=== PATIENT | male | born 1935 | race Caucasian/White ===

== ENCOUNTER 2018-02-20 20:31 | Inpatient (IN) | payer MEDICARE, OTHER ==
[~2018-02-20] VITALS: Ht 182.9 cm; Wt 80.9 kg
[2018-02-20] MEDS ORDERED: DIPHTH/TETANUS/ACEL PERTUSSIS (BOOSTER) 0.5 ML VIAL/PFS IM ONE (20:37)
[2018-02-20] MEDS ORDERED: ceFAZolin 2 GM PREMIX 50 ML ONE (20:37)
[2018-02-20 20:50] LABS: AUTOMATED NEUTROPHIL # 4.2 TH/MM3 (1.8-7.7); BASOPHIL # 0.1 TH/MM3 (0-0.2); BASOPHIL % 0.9 % (0.0-2.0); EOSINOPHIL # 0.1 TH/MM3 (0-0.4); EOSINOPHIL % 1.9 % (0.0-4.0); HEMATOCRIT 41.4 % (39.0-51.0); HEMOGLOBIN 14.1 GM/DL (13.0-17.0); LYMPH % 18.4 % (9.0-44.0); LYMPHOCYTE # 1.1 TH/MM3 (1.0-4.8); MEAN CELL VOLUME 97.3 FL (80.0-100.0); MEAN CORPUSCULAR HEMOGLOBIN 33.2 PG (27.0-34.0); MEAN CORPUSCULAR HGB CONC 34.1 % (32.0-36.0); MEAN PLATELET VOLUME 7.5 FL (7.0-11.0); MONO % 7.8 % (0.0-8.0); MONOCYTE # 0.5 TH/MM3 (0-0.9); PLATELET COUNT 170 TH/MM3 (150-450); RED BLOOD COUNT 4.26 MIL/MM3 (4.50-5.90); RED CELL DISTRIBUTION WIDTH 14.3 % (11.6-17.2); WHITE BLOOD COUNT 5.9 TH/MM3 (4.0-11.0)
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
[2018-02-20 21:02] LABS: PROTHROMBIN TIME - PATIENT 10.4 SEC (9.8-11.6)
[2018-02-20] MEDS ORDERED: IOHEXOL 350 MG/ML 10 ML VIAL (for RAD DIAG) IVCONTRAST ONE (21:08)
[2018-02-20 21:12] VITALS: BP 134/76; PULSE 83; RESP 22; O2SAT 96
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
[2018-02-20 21:30] VITALS: BP 159/77; PULSE 84; RESP 20; O2SAT 99
[2018-02-20] MEDS ORDERED: ONDANSETRON HCL 4 MG/2 ML VIAL ONE (21:30)
[2018-02-20] MEDS ORDERED: MORPHINE SULFATE 4 MG/ML INJ ONE (21:31)
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
[2018-02-20] MEDS ORDERED: ONDANSETRON HCL 4 MG/2 ML VIAL IV PUSH ONE (21:45)
[2018-02-20] MEDS ORDERED: NURSING INFORMATION XX SCH (21:45)
[2018-02-20] MEDS ORDERED: CHLORHEXIDINE GLUCONATE 2 % 1 PACK (2 CLOTHS) TOP PRN (21:45)
[2018-02-20] MEDS ORDERED: MORPHINE SULFATE 2 MG/ML SYRINGE IV PUSH ONE (21:45)
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
[2018-02-20 22:00] VITALS: BP 153/77; PULSE 86; RESP 20; O2SAT 99
[2018-02-20 22:30] VITALS: BP 161/76; PULSE 88; RESP 19; O2SAT 99
[2018-02-20 23:00] VITALS: BP 147/73; PULSE 90; RESP 19; O2SAT 99
[2018-02-20 23:30] VITALS: BP 156/74; PULSE 94; RESP 16; O2SAT 99
[2018-02-20] MEDS: LACTATED RINGER'S 1000 ML INJ 1,000 ML IV SCH (23:39)
[2018-02-20] MEDS: ACETAMINOPHEN 1000 MG/100 ML 100 ML IV SCH (23:48)
[2018-02-20] MEDS: MORPHINE SULFATE 2 MG/ML SYRINGE IV PRN (23:54)
[2018-02-21] VITALS (16 sets, daily range): BP systolic 119–146; BP diastolic 57–73; PULSE 78–94; RESP 14–17; TEMP 98.7–99; O2SAT 95–99
[2018-02-21] MEDS: CHLORHEXIDINE GLUCONATE 2 % 1 PACK (2 CLOTHS) TOP SCH ×2 (04:00→21:59)
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
[2018-02-21] MEDS: MORPHINE SULFATE 2 MG/ML SYRINGE IV PRN (05:02)
[2018-02-21] MEDS: ACETAMINOPHEN 1000 MG/100 ML 100 ML IV SCH ×3 (06:16→14:29)
[2018-02-21] MEDS ORDERED: LACTULOSE SYRUP 20 GM/30 ML CUP PO PRN (06:30)
[2018-02-21] MEDS: RESP: ALBUTEROL 2.5 MG/IPRATROPIUM 0.5 MG NEB (SCH) NEB ×4 (06:48→21:16)
[2018-02-21] MEDS: METHOCARBAMOL 500 MG TAB PO SCH ×3 (08:02→21:59)
[2018-02-21] MEDS: POLYETHYLENE GLYCOL 17 GM PKG PO SCH (08:07)
[2018-02-21] MEDS ORDERED: AZAT50 PO (08:58)
[2018-02-21] MEDS ORDERED: PRIM250T (09:05)
[2018-02-21] MEDS ORDERED: LEVO25TA4 PO (09:05)
[2018-02-21] MEDS ORDERED: ALFU10TA2 PO (09:05)
[2018-02-21] MEDS ORDERED: CARB25TA9 PO (09:05)
[2018-02-21] MEDS ORDERED: DONE10TA7 PO (09:05)
[2018-02-21] MEDS ORDERED: ATOR20TA15 PO (09:05)
[2018-02-21] MEDS: GABAPENTIN 300 MG CAP PO SCH ×3 (09:21→18:51)
[2018-02-21] MEDS: FAMOTIDINE 20 MG TAB PO SCH ×2 (09:21→20:22)
[2018-02-21] MEDS: DOCUSATE SODIUM 50 MG/SENNA 8.6 MG TAB PO SCH ×2 (09:22→20:22)
[2018-02-21] MEDS: LIDOCAINE HCL 5% PATCH T-DERMAL SCH (10:03)
[2018-02-21] MEDS: PRIMIDONE 250 MG TAB PO SCH ×2 (13:15→20:21)
[2018-02-21] MEDS: TAMSULOSIN HCL 0.4 MG CAP PO SCH (13:17)
[2018-02-21] MEDS: azaTHIOprine 50 MG TAB PO SCH ×2 (13:17→20:21)
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
[2018-02-21] MEDS: CARBIDOPA/LEVODOPA 25 MG/100 MG TAB PO SCH ×2 (14:28→21:59)
[2018-02-21] MEDS ORDERED: ENALAPRILAT 1.25 MG/ML VIAL IV PUSH PRN (16:15)
--- NOTE | 2018-02-21 16:46 | EKG ---
Date Performed: 02/21/2018 Time Performed: 07:41:29 PTAGE: 89 years EKG: Sinus rhythm NONSPECIFIC T-WAVE ABNORMALITY BORDERLINE ECG NO PREVIOUS TRACING DOCTOR: Aron Sanchez Interpretating Date/Time 02/21/2018 16:47:02
[2018-02-21] MEDS: DONEPEZIL HCL 5 MG TAB PO SCH (20:21)
[2018-02-21] MEDS: ATORVASTATIN 20 MG TAB PO SCH (20:22)
[2018-02-21] MEDS: LACTATED RINGER'S 1000 ML INJ 1,000 ML IV SCH (20:29)
[2018-02-22] VITALS (8 sets, daily range): BP systolic 125–143; BP diastolic 59–66; PULSE 80–99; RESP 15–18; TEMP 97.2–99.3; O2SAT 93–98
[2018-02-22 04:25] LABS: AUTOMATED NEUTROPHIL # 2.8 TH/MM3 (1.8-7.7); BASOPHIL % 0.5 % (0.0-2.0); EOSINOPHIL # 0.1 TH/MM3 (0-0.4); EOSINOPHIL % 1.9 % (0.0-4.0); HEMATOCRIT 35.7 % (39.0-51.0); HEMOGLOBIN 12.1 GM/DL (13.0-17.0); LYMPH % 7.7 % (9.0-44.0); LYMPHOCYTE # 0.3 TH/MM3 (1.0-4.8); MEAN CELL VOLUME 97.4 FL (80.0-100.0); MEAN CORPUSCULAR HGB CONC 33.9 % (32.0-36.0); MEAN PLATELET VOLUME 7.3 FL (7.0-11.0); MONO % 10.7 % (0.0-8.0); MONOCYTE # 0.4 TH/MM3 (0-0.9); NEUT % 79.2 % (16.0-70.0); PLATELET COUNT 113 TH/MM3 (150-450); RED BLOOD COUNT 3.66 MIL/MM3 (4.50-5.90); RED CELL DISTRIBUTION WIDTH 14.5 % (11.6-17.2); WHITE BLOOD COUNT 3.6 TH/MM3 (4.0-11.0)
[2018-02-22 04:39] LABS: BICARBONATE 25.8 MEQ/L (21.0-32.0); CALCIUM 7.9 MG/DL (8.5-10.1); CREATININE 0.63 MG/DL (0.60-1.30)
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
[2018-02-22] MEDS: METHOCARBAMOL 500 MG TAB PO SCH ×3 (06:12→21:26)
[2018-02-22] MEDS: CARBIDOPA/LEVODOPA 25 MG/100 MG TAB PO SCH ×3 (06:12→21:27)
[2018-02-22] MEDS: LEVOTHYROXINE SODIUM 25 MCG TAB PO SCH (06:14)
[2018-02-22] MEDS: RESP: ALBUTEROL 2.5 MG/IPRATROPIUM 0.5 MG NEB (SCH) NEB ×4 (08:34→21:32)
[2018-02-22] MEDS: GABAPENTIN 300 MG CAP PO SCH ×3 (08:55→18:11)
[2018-02-22] MEDS: FAMOTIDINE 20 MG TAB PO SCH ×2 (08:55→21:26)
[2018-02-22] MEDS: TAMSULOSIN HCL 0.4 MG CAP PO SCH (08:55)
[2018-02-22] MEDS: PRIMIDONE 250 MG TAB PO SCH ×2 (08:56→21:26)
[2018-02-22] MEDS: DOCUSATE SODIUM 50 MG/SENNA 8.6 MG TAB PO SCH ×2 (08:56→21:25)
[2018-02-22] MEDS: LIDOCAINE HCL 5% PATCH T-DERMAL SCH (08:57)
[2018-02-22] MEDS: POLYETHYLENE GLYCOL 17 GM PKG PO SCH (09:04)
[2018-02-22] MEDS: azaTHIOprine 50 MG TAB PO SCH ×2 (09:27→21:26)
[2018-02-22] MEDS: HEPARIN SODIUM - SQ 10,000 UNITS/ML VIAL SQ SCH ×2 (14:00→21:27)
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
[2018-02-22] MEDS: ATORVASTATIN 20 MG TAB PO SCH (21:26)
[2018-02-22] MEDS: DONEPEZIL HCL 5 MG TAB PO SCH (21:26)
[2018-02-22] MEDS: LACTATED RINGER'S 1000 ML INJ 1,000 ML IV SCH (21:38)
[2018-02-23] MEDS: CHLORHEXIDINE GLUCONATE 2 % 1 PACK (2 CLOTHS) TOP SCH (02:32)
[2018-02-23] MEDS: CARBIDOPA/LEVODOPA 25 MG/100 MG TAB PO SCH ×3 (05:04→22:11)
[2018-02-23] MEDS: LEVOTHYROXINE SODIUM 25 MCG TAB PO SCH (05:04)
[2018-02-23] MEDS: HEPARIN SODIUM - SQ 10,000 UNITS/ML VIAL SQ SCH ×3 (05:04→21:53)
[2018-02-23] MEDS: METHOCARBAMOL 500 MG TAB PO SCH ×3 (05:05→21:55)
[2018-02-23 05:33] LABS: AUTOMATED NEUTROPHIL # 3.9 TH/MM3 (1.8-7.7); BASOPHIL % 0.4 % (0.0-2.0); EOSINOPHIL # 0.1 TH/MM3 (0-0.4); EOSINOPHIL % 2.5 % (0.0-4.0); HEMATOCRIT 34.4 % (39.0-51.0); HEMOGLOBIN 11.7 GM/DL (13.0-17.0); LYMPH % 8.3 % (9.0-44.0); LYMPHOCYTE # 0.4 TH/MM3 (1.0-4.8); MEAN CELL VOLUME 98.1 FL (80.0-100.0); MEAN CORPUSCULAR HEMOGLOBIN 33.5 PG (27.0-34.0); MEAN CORPUSCULAR HGB CONC 34.1 % (32.0-36.0); MEAN PLATELET VOLUME 7.4 FL (7.0-11.0); MONO % 10.2 % (0.0-8.0); MONOCYTE # 0.5 TH/MM3 (0-0.9); NEUT % 78.6 % (16.0-70.0); PLATELET COUNT 106 TH/MM3 (150-450); RED CELL DISTRIBUTION WIDTH 14.2 % (11.6-17.2)
[2018-02-23 06:00] LABS: BICARBONATE 27.3 MEQ/L (21.0-32.0); CALCIUM 8.2 MG/DL (8.5-10.1); CREATININE 0.66 MG/DL (0.60-1.30)
[2018-02-23] MEDS: RESP: ALBUTEROL 2.5 MG/IPRATROPIUM 0.5 MG NEB (SCH) NEB ×4 (07:15→19:07)
[2018-02-23 07:19] VITALS: O2SAT 96
[2018-02-23 08:00] VITALS: BP 130/66; PULSE 96; RESP 18; TEMP 98.8; O2SAT 97
[2018-02-23] MEDS: GABAPENTIN 300 MG CAP PO SCH ×3 (08:14→17:58)
[2018-02-23] MEDS: PRIMIDONE 250 MG TAB PO SCH ×2 (08:14→21:55)
[2018-02-23] MEDS: TAMSULOSIN HCL 0.4 MG CAP PO SCH (08:14)
[2018-02-23] MEDS: FAMOTIDINE 20 MG TAB PO SCH (08:14)
[2018-02-23] MEDS: POLYETHYLENE GLYCOL 17 GM PKG PO SCH (08:14)
[2018-02-23] MEDS: DOCUSATE SODIUM 50 MG/SENNA 8.6 MG TAB PO SCH ×2 (08:14→21:55)
[2018-02-23] MEDS: azaTHIOprine 50 MG TAB PO SCH ×2 (08:14→21:55)
[2018-02-23] MEDS: LIDOCAINE HCL 5% PATCH T-DERMAL SCH (08:16)
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
[2018-02-23 12:00] VITALS: BP_SYST 121; BP_SYST 139; BP_DIAS 67; BP_DIAS 79; PULSE 104; PULSE 89; RESP 18; RESP 19; TEMP 97.9; TEMP 98.4; O2SAT 94; O2SAT 96
[2018-02-23] MEDS ORDERED: PERI PO (12:46)
[2018-02-23] MEDS ORDERED: PERC7.5T13 PO (12:46)
[2018-02-23] MEDS: PANTOPRAZOLE SODIUM 40 MG VIAL IV PUSH SCH ×2 (12:49→21:53)
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
[2018-02-23 15:19] VITALS: O2SAT 95
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
[2018-02-23 16:00] VITALS: BP 136/65; PULSE 95; RESP 18; TEMP 98.7; O2SAT 96
[2018-02-23] MEDS: ATORVASTATIN 20 MG TAB PO SCH (21:54)
[2018-02-23] MEDS: DONEPEZIL HCL 5 MG TAB PO SCH (21:55)
[2018-02-23 22:13] VITALS: BP 141/69; PULSE 98; RESP 17; TEMP 98.4; O2SAT 96
[2018-02-24] VITALS (7 sets, daily range): BP systolic 134–171; BP diastolic 70–96; PULSE 90–98; RESP 16–18; TEMP 97.5–99.3; O2SAT 86–97
[2018-02-24] MEDS: CHLORHEXIDINE GLUCONATE 2 % 1 PACK (2 CLOTHS) TOP SCH (04:00)
[2018-02-24] MEDS: METHOCARBAMOL 500 MG TAB PO SCH ×3 (05:33→22:31)
[2018-02-24] MEDS: LEVOTHYROXINE SODIUM 25 MCG TAB PO SCH (05:33)
[2018-02-24] MEDS: HEPARIN SODIUM - SQ 10,000 UNITS/ML VIAL SQ SCH ×3 (05:33→22:31)
[2018-02-24] MEDS: CARBIDOPA/LEVODOPA 25 MG/100 MG TAB PO SCH ×3 (05:33→22:31)
[2018-02-24] MEDS: RESP: ALBUTEROL 2.5 MG/IPRATROPIUM 0.5 MG NEB (SCH) NEB ×4 (08:30→19:43)
[2018-02-24] MEDS: DOCUSATE SODIUM 50 MG/SENNA 8.6 MG TAB PO SCH ×2 (08:44→20:14)
[2018-02-24] MEDS: TAMSULOSIN HCL 0.4 MG CAP PO SCH (08:44)
[2018-02-24] MEDS: GABAPENTIN 300 MG CAP PO SCH ×3 (08:44→18:28)
[2018-02-24] MEDS: PRIMIDONE 250 MG TAB PO SCH ×2 (08:44→20:14)
[2018-02-24] MEDS: azaTHIOprine 50 MG TAB PO SCH ×2 (08:44→20:14)
[2018-02-24] MEDS: PANTOPRAZOLE SODIUM 40 MG VIAL IV PUSH SCH ×2 (08:44→20:13)
[2018-02-24] MEDS: POLYETHYLENE GLYCOL 17 GM PKG PO SCH (08:45)
[2018-02-24] MEDS: LIDOCAINE HCL 5% PATCH T-DERMAL SCH (08:45)
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
--- NOTE | 2018-02-24 14:23 | HHI.GIFU ---
Subjective Remarks Patient appears to be comfortable in bed answers appropriately but he is confused with regards to surroundings and date Objective Vitals I&O Vital Signs Date Time Temp Pulse Resp B/P (MAP) Pulse Ox O2 Delivery O2 Flow Rate FiO2 02/24/18 08:31 94 Nasal Cannula 3.00 02/24/18 08:00 97.9 93 18 167/83 (111) 93 02/24/18 05:30 98.7 91 16 171/77 (108) 86 02/24/18 02:19 99.3 97 16 163/74 (103) 96 02/23/18 22:13 98.4 98 17 141/69 (93) 96 02/23/18 16:00 98.7 95 18 136/65 (88) 96 02/23/18 15:19 95 Nasal Cannula 2.00 I/O 02/23/18 02/23/18 02/23/18 02/24/18 02/24/18 02/24/18 06:59 14:59 22:59 06:59 14:59 22:59 Output Total 600 ml Balance -600 ml Output Urine Total 600 ml Bladder Scan Volume Amount 1100 ml Laboratory Laboratory Tests Test 02/23/18 05:07 White Blood Count 5.0 TH/MM3 Red Blood Count 3.50 MIL/MM3 Hemoglobin 11.7 GM/DL Hematocrit 34.4 % Mean Corpuscular Volume 98.1 FL Mean Corpuscular Hemoglobin 33.5 PG Mean Corpuscular Hemoglobin Concent 34.1 % Red Cell Distribution Width 14.2 % Platelet Count 106 TH/MM3 Mean Platelet Volume 7.4 FL Neutrophils (%) (Auto) 78.6 % Lymphocytes (%) (Auto) 8.3 % Monocytes (%) (Auto) 10.2 % Eosinophils (%) (Auto) 2.5 % Basophils (%) (Auto) 0.4 % Neutrophils # (Auto) 3.9 TH/MM3 Lymphocytes # (Auto) 0.4 TH/MM3 Monocytes # (Auto) 0.5 TH/MM3 Eosinophils # (Auto) 0.1 TH/MM3 Basophils # (Auto) 0.0 TH/MM3 CBC Comment DIFF FINAL Differential Comment Blood Urea Nitrogen 8 MG/DL Creatinine 0.66 MG/DL Random Glucose 111 MG/DL Calcium Level 8.2 MG/DL Sodium Level 138 MEQ/L Potassium Level 3.8 MEQ/L Chloride Level 103 MEQ/L Carbon Dioxide Level 27.3 MEQ/L Anion Gap 8 MEQ/L Estimat Glomerular Filtration Rate 116 ML/MIN Physical Exam HEENT: normocephalic; atraumatic; no jaundice. Throat is clear. NECK: Neck is supple, no JVD, . CHEST: Chest is clear to auscultation and percussion. CARDIAC: Regular rate and rhythm with no murmur gallop or rubs. ABDOMEN: Soft, nondistended, nontender; no hepatosplenomegaly; bowel sounds are present in all four quadrants. EXTREMITIES: No clubbing, cyanosis, or edema. SKIN: Normal; no rash; no jaundice. [place] GUIDE: No focal deficits; alert but disoriented Assessment and Plan Plan Dysphagia onset 2 years ago but has worsened over the last few months. Patient has choking episodes and states he has to sit straight up to eat. Patient states he needs fluids at his bedside to get food down and slightly leans his head back to swallow. He does note he chews his food very well and has problems with cereal and food with roughage. Lower abdominal pain, history of Crohn's disease unknown last colonoscopy, notes chronic constipation for the last 3 days. Patient home medication included azathioprine 50 mg twice daily Current hemoglobin 11.7 Plan Patient presenting for his scopes but unfortunately he is not oriented sufficiently to sign his own consents as per the anesthesia service and hence we are unable to proceed at this point in time Clear liquids today Consent for EGD with dilatation and colonoscopy in the morning PPI IV Further recommendations will be based on findings Monitor labs Luke Funk MD Feb 24, 2018 14:23
[2018-02-24] MEDS ORDERED: MAGNESIUM CITRATE SOLN 300 ML BTL PO ONE (18:00)
[2018-02-24] MEDS: DONEPEZIL HCL 5 MG TAB PO SCH (20:14)
[2018-02-24] MEDS: ATORVASTATIN 20 MG TAB PO SCH (20:14)
[2018-02-25] VITALS: BP 140/66; PULSE 95; RESP 18; TEMP 98.1; O2SAT 96
[2018-02-25 04:00] VITALS: BP 138/70; PULSE 87; RESP 18; TEMP 98.3; O2SAT 95
[2018-02-25] MEDS: METHOCARBAMOL 500 MG TAB PO SCH ×3 (04:51→20:36)
[2018-02-25] MEDS: LEVOTHYROXINE SODIUM 25 MCG TAB PO SCH (04:51)
[2018-02-25] MEDS: CARBIDOPA/LEVODOPA 25 MG/100 MG TAB PO SCH ×3 (04:51→20:36)
[2018-02-25] MEDS: HEPARIN SODIUM - SQ 10,000 UNITS/ML VIAL SQ SCH ×3 (04:52→21:47)
[2018-02-25] MEDS ORDERED: MAGNESIUM CITRATE SOLN 300 ML BTL PO ONE (05:00)
[2018-02-25 08:00] VITALS: BP 133/71; PULSE 89; RESP 20; TEMP 97.7; O2SAT 98
[2018-02-25] MEDS: DOCUSATE SODIUM 50 MG/SENNA 8.6 MG TAB PO SCH ×2 (08:52→20:36)
[2018-02-25] MEDS: azaTHIOprine 50 MG TAB PO SCH ×2 (08:52→20:36)
[2018-02-25] MEDS: PRIMIDONE 250 MG TAB PO SCH ×2 (08:52→20:36)
[2018-02-25] MEDS: GABAPENTIN 300 MG CAP PO SCH ×3 (08:52→17:08)
[2018-02-25] MEDS: TAMSULOSIN HCL 0.4 MG CAP PO SCH (08:52)
[2018-02-25] MEDS: LIDOCAINE HCL 5% PATCH T-DERMAL SCH (08:53)
[2018-02-25] MEDS: POLYETHYLENE GLYCOL 17 GM PKG PO SCH (08:53)
[2018-02-25] MEDS: PANTOPRAZOLE SODIUM 40 MG VIAL IV PUSH SCH ×2 (08:53→20:35)
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
[2018-02-25 12:00] VITALS: BP 140/65; PULSE 78; RESP 20; TEMP 97.5; O2SAT 98
[2018-02-25] MEDS ORDERED: PROPOFOL 200 MG/20 ML AMP IV ONE (12:00)
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
--- NOTE | 2018-02-25 14:48 | PD.PROCEDR ---
GI Procedure PROCEDURE PERFORMED EGD with biopsy followed by colonoscopy with biopsy INDICATION FOR PROCEDURE Dysphagia, history of Crohn's, abdominal pain PROCEDURE: The procedure, risks and benefits were discussed with Patient/POA and informed consent was obtained. Anesthesia sedated Patient with Diprivan. Patient was placed in the left lateral decubitus position. EGD: The Pentax videoscope was introduced through the oropharynx and advanced to the second portion of the duodenum under direct visualization. Retroflexion was performed in the stomach. FINDINGS: The esophagus this appeared to be unremarkable and within normal limits biopsies were taken for further evaluation The stomach there was patchy erythema in the antrum but no ulcerations no erosions no blood or bleeding the rest of the stomach was unremarkable antral biopsies were taken for further evaluation The duodenum this was normal Colonoscopy: The Pentax videoscope was introduced through the rectum and advanced to cecum where the ileocecal valve and appendiceal orifice were identified. Retroflexion was performed in the rectum. Colonic prep was fair FINDINGS: Colonic withdrawal time greater than 6 minutes. As the scope was slowly withdrawn colonic mucosa was carefully inspected the patient was noted to have diffuse patchy erythema throughout the colon with some edema and this was noted from the rectum all the way to the cecum no distinct ulcerations multiple biopsies were taken from all segments retroflexion in rectum did reveal moderate -sized internal hemorrhoids otherwise rectal examination unremarkable ESTIMATED BLOOD LOSS: None SPECIMENS REMOVED: Esophageal biopsies, gastric biopsies, and colon biopsies COMPLICATIONS: None IMPRESSION: Normal esophagus Mild gastritis Colitis throughout the colon PLAN: Await biopsies Continue PPI Continue with current supportive care Monitor labs Advance diet Luke Funk MD Feb 25, 2018 2:48 pm
[2018-02-25 16:00] VITALS: BP 147/69; PULSE 89; RESP 20; TEMP 97.3; O2SAT 93
[2018-02-25 19:50] VITALS: BP 137/64; PULSE 97; RESP 16; TEMP 98.2; O2SAT 92
[2018-02-25] MEDS: ATORVASTATIN 20 MG TAB PO SCH (20:36)
[2018-02-25] MEDS: DONEPEZIL HCL 5 MG TAB PO SCH (20:36)
[2018-02-25] MEDS: REMOVE OLD LIDOCAINE PATCH T-DERMAL SCH (20:37)
[2018-02-26] VITALS (8 sets, daily range): BP systolic 29–149; BP diastolic 61–70; PULSE 87–96; RESP 16–20; TEMP 98–99.9; O2SAT 91–93
[2018-02-26] MEDS: CHLORHEXIDINE GLUCONATE 2 % 1 PACK (2 CLOTHS) TOP SCH ×2 (01:47→23:40)
[2018-02-26 04:46] LABS: HEMATOCRIT 33.2 % (39.0-51.0); HEMOGLOBIN 11.4 GM/DL (13.0-17.0); MEAN CELL VOLUME 96.4 FL (80.0-100.0); MEAN CORPUSCULAR HEMOGLOBIN 33.2 PG (27.0-34.0); MEAN CORPUSCULAR HGB CONC 34.5 % (32.0-36.0); PLATELET COUNT 199 TH/MM3 (150-450); RED BLOOD COUNT 3.44 MIL/MM3 (4.50-5.90); RED CELL DISTRIBUTION WIDTH 13.9 % (11.6-17.2)
[2018-02-26] MEDS: CARBIDOPA/LEVODOPA 25 MG/100 MG TAB PO SCH ×3 (05:50→22:00)
[2018-02-26] MEDS: LEVOTHYROXINE SODIUM 25 MCG TAB PO SCH (05:50)
[2018-02-26] MEDS: METHOCARBAMOL 500 MG TAB PO SCH ×3 (05:50→22:00)
[2018-02-26] MEDS: HEPARIN SODIUM - SQ 10,000 UNITS/ML VIAL SQ SCH ×3 (05:50→22:00)
[2018-02-26] MEDS: TAMSULOSIN HCL 0.4 MG CAP PO SCH (08:31)
[2018-02-26] MEDS: GABAPENTIN 300 MG CAP PO SCH ×3 (08:31→17:36)
[2018-02-26] MEDS: DOCUSATE SODIUM 50 MG/SENNA 8.6 MG TAB PO SCH ×2 (08:32→21:00)
[2018-02-26] MEDS: PRIMIDONE 250 MG TAB PO SCH ×2 (08:32→21:00)
[2018-02-26] MEDS: azaTHIOprine 50 MG TAB PO SCH ×2 (08:34→21:00)
[2018-02-26] MEDS: PANTOPRAZOLE SODIUM 40 MG VIAL IV PUSH SCH ×2 (08:38→21:00)
[2018-02-26] MEDS: POLYETHYLENE GLYCOL 17 GM PKG PO SCH (08:40)
[2018-02-26] MEDS: LIDOCAINE HCL 5% PATCH T-DERMAL SCH (08:43)
--- NOTE | 2018-02-26 13:22 | HHI.GIFU ---
Subjective Remarks Resting in the bed appears comfortable Still having some mild diffuse abdominal discomfort, off and on No obvious nausea or vomiting Hemoglobin 11.4 (Lola Borjas) Objective Vitals I&O Vital Signs Date Time Temp Pulse Resp B/P (MAP) Pulse Ox O2 Delivery O2 Flow Rate FiO2 02/26/18 09:00 Room Air 21 02/26/18 08:00 98.0 87 18 148/69 (95) 92 02/26/18 06:46 99.6 90 16 149/70 (96) 93 02/26/18 01:08 99.9 96 16 143/70 (94) 91 02/25/18 20:30 Room Air 02/25/18 19:50 98.2 97 16 137/64 (88) 92 02/25/18 19:02 Room Air 02/25/18 16:00 97.3 89 20 147/69 (95) 93 02/25/18 15:04 98.6 88 18 132/69 (90) 97 I/O 02/25/18 02/25/18 02/25/18 02/26/18 02/26/18 02/26/18 07:00 15:00 23:00 07:00 15:00 23:00 Intake Total 120 ml 400 ml 0 ml Output Total 1500 ml 550 ml Balance -1380 ml 400 ml -550 ml Intake Oral 120 ml 0 ml IV Total 0 ml 0 ml Other 400 ml Output Urine Total 1500 ml 550 ml Bladder Scan Volume Amount 1100 ml # Bowel Movements 5 2 Laboratory Laboratory Tests Test 02/26/18 04:26 White Blood Count 4.0 Red Blood Count 3.44 Hemoglobin 11.4 Hematocrit 33.2 Mean Corpuscular Volume 96.4 Mean Corpuscular Hemoglobin 33.2 Mean Corpuscular Hemoglobin Concent 34.5 Red Cell Distribution Width 13.9 Platelet Count 199 Mean Platelet Volume 7.0 Imaging Last Impressions Chest X-Ray 02/22/18 0600 Signed Impressions: Service Date/Time: Thursday, February 22, 2018 04:19 - CONCLUSION: Minimal right basilar atelectasis. Saurabh Maldonado Jr., MD Pelvis X-Ray 02/20/182032 Signed Impressions: Service Date/Time: Tuesday, February 20, 2018 20:29 - CONCLUSION: Lower right rib fractures. Ermias Smith MD Maxillofacial CT 02/20/182032 Signed Impressions: Service Date/Time: Tuesday, February 20, 2018 20:40 - CONCLUSION: No acute abnormality or fracture is seen. Ermias Smith MD Head CT 02/20/182032 Signed Impressions: Service Date/Time: Tuesday, February 20, 2018 20:40 - CONCLUSION: No acute intracranial abnormality. There is focal soft tissue swelling at the superior medial posterior scalp. Ermias Smith MD Chest CT 02/20/182032 Signed Impressions: Service Date/Time: Tuesday, February 20, 2018 20:40 - CONCLUSION: 1. Nondisplaced sternal body fracture. 2. Right sixth through ninth rib fractures. 3. Mild increased density at the posterior lungs bilaterally likely related to atelectasis versus contusions. Ermias Smith MD Cervical Spine CT 02/20/182032 Signed Impressions: Service Date/Time: Tuesday, February 20, 2018 20:40 - CONCLUSION: 1. Degenerative change throughout. 2. There is moderate to severe posterior osteophytic ridging at the C5-C6 level and moderate posterior osteophytic ridging at the C6-C7 level. 3. No acute bony abnormalities seen. Ermias Smith MD Abdomen/Pelvis CT 02/20/182032 Signed Impressions: Service Date/Time: Tuesday, February 20, 2018 20:40 - CONCLUSION: 1. No acute intra-abdominal or pelvic abnormality seen. 2. Mild hepatic steatosis. Ermias Smith MD Physical Exam HEENT: normocephalic; atraumatic; no jaundice. Throat is clear. NECK: Neck is supple, no JVD, . CHEST: Mild diminished breath sounds especially in the bases, volumes low to medium CARDIAC: Regular rate and rhythm ABDOMEN: Soft, nondistended, mild diffuse tenderness to light palpation, bowel sounds are present in all four quadrants., Zhang catheter EXTREMITIES: No clubbing, cyanosis, or edema. SKIN: Pale, normal; no rash; no jaundice. ENTERPRISE ANALYST: No focal deficits; awake answering simple questions more appropriately today (Lola Borjas) Assessment and Plan Plan Dysphagia onset 2 years ago but has worsened over the last few months. Patient has choking episodes and states he has to sit straight up to eat. Patient states he needs fluids at his bedside to get food down and slightly leans his head back to swallow. He does note he chews his food very well and has problems with cereal and food with roughage. Lower abdominal pain, history of Crohn's disease unknown last colonoscopy, notes chronic constipation for the last 3 days. Patient home medication included azathioprine 50 mg twice daily Current hemoglobin 11.7 EGD and colonoscopy performed 02/25/2018, findings include mild gastritis and colitis throughout the colon 02/26/2018 patient's resting in the bed, no obvious nausea or vomiting, Zhang catheter in place. Loose stool once this a.m., still having some mild diffuse abdominal pain but showing gradual improvement Plan Await biopsies Continue PPI Continue with current supportive care Monitor labs Further recommendations based on symptoms Supportive care Encourage mobility and angle on side of the bed, up in chair Patient was seen per myself and Dr. Funk, note was written on his behalf (Lola Borjas) Physician Comments Patient seen and examined Agree with above Continue with current supportive care Monitor labs Await biopsy results (Luke Funk MD) Lola Borjas Feb 26, 2018 13:22 Luke Funk MD Feb 26, 2018 20:36
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
[2018-02-26] MEDS: ATORVASTATIN 20 MG TAB PO SCH (21:00)
[2018-02-26] MEDS: REMOVE OLD LIDOCAINE PATCH T-DERMAL SCH (21:00)
[2018-02-26] MEDS: DONEPEZIL HCL 5 MG TAB PO SCH (21:00)
[2018-02-26 22:11] LABS: BICARBONATE 28.8 MEQ/L (21.0-32.0); CREATININE 0.63 MG/DL (0.60-1.30)
--- NOTE | 2018-02-26 22:20 | RADRPT ---
EXAM DATE/TIME: 02/26/2018 22:03 [facility] COMPARISON: CT BRAIN W/O CONTRAST, February 20, 2018, 20:40. INDICATIONS : Altered mental status. RADIATION DOSE: 56.35 CTDIvol (mGy) MEDICAL HISTORY : Dementia. SURGICAL HISTORY : None. ENCOUNTER: Initial ACUITY: 1 day PAIN SCALE: 0/10 LOCATION: cranial TECHNIQUE: Multiple contiguous axial images were obtained of the head. Using automated exposure control and adj ustment of the mA and/or kV according to patient size, radiation dose was kept as low as reasonably a chievable to obtain optimal diagnostic quality images. DICOM format image data is available electro nically for review and comparison. FINDINGS: CEREBRUM: The ventricles are normal for age. No evidence of midline shift, mass lesion, hemorrhage or acute in farction. No extra-axial fluid collections are seen. POSTERIOR FOSSA: The cerebellum and brainstem are intact. The 4th ventricle is midline. The cerebellopontine angle i s unremarkable. EXTRACRANIAL: The visualized portion of the orbits is intact. SKULL: The calvaria is intact. No evidence of skull fracture. CONCLUSION: No acute intracranial abnormality. Ermias Anaya MD on February 26, 2018 at 22:17 Board Certified Radiologist. This report was verified electronically.
[2018-02-27] VITALS (7 sets, daily range): BP systolic 119–141; BP diastolic 56–71; PULSE 81–97; RESP 17–18; TEMP 98–101.2; O2SAT 91–97
[2018-02-27] MEDS: METHOCARBAMOL 500 MG TAB PO SCH ×3 (06:00→20:39)
[2018-02-27] MEDS: HEPARIN SODIUM - SQ 10,000 UNITS/ML VIAL SQ SCH ×3 (06:18→20:38)
[2018-02-27] MEDS: CARBIDOPA/LEVODOPA 25 MG/100 MG TAB PO SCH ×3 (06:18→20:38)
[2018-02-27] MEDS: LEVOTHYROXINE SODIUM 25 MCG TAB PO SCH (06:18)
[2018-02-27] MEDS: PRIMIDONE 250 MG TAB PO SCH ×2 (08:32→20:38)
[2018-02-27] MEDS: GABAPENTIN 300 MG CAP PO SCH ×3 (08:32→17:14)
[2018-02-27] MEDS: DOCUSATE SODIUM 50 MG/SENNA 8.6 MG TAB PO SCH ×2 (08:32→20:39)
[2018-02-27] MEDS: azaTHIOprine 50 MG TAB PO SCH ×2 (08:32→20:39)
[2018-02-27] MEDS: TAMSULOSIN HCL 0.4 MG CAP PO SCH (08:32)
[2018-02-27] MEDS: PANTOPRAZOLE SODIUM 40 MG VIAL IV PUSH SCH ×2 (08:33→20:38)
[2018-02-27] MEDS: POLYETHYLENE GLYCOL 17 GM PKG PO SCH (08:33)
[2018-02-27] MEDS: LIDOCAINE HCL 5% PATCH T-DERMAL SCH (08:33)
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
--- NOTE | 2018-02-27 14:27 | HHI.GIFU ---
Subjective Remarks Patient's resting in the bed Appears weakened DOCUMENT PROCESSOR's are assisting with his feeding although his appetite seems to be good Skin color pale Afebrile (Lola Borjas) Objective Vitals I&O Vital Signs Date Time Temp Pulse Resp B/P (MAP) Pulse Ox O2 Delivery O2 Flow Rate FiO2 02/27/18 14:01 91 21 02/27/18 12:00 98.0 96 17 141/71 (94) 94 02/27/18 08:48 Nasal Cannula 2.00 02/27/18 08:00 98.8 84 17 129/65 (86) 93 02/27/18 04:00 98.2 81 18 136/63 (87) 95 02/27/18 00:00 99.1 88 18 124/59 (80) 97 02/26/18 21:41 Nasal Cannula 2.00 02/26/18 20:40 98.4 89 16 143/67 (92) 02/26/18 20:30 Nasal Cannula 2.00 02/26/18 19:30 99.3 91 20 127/61 (83) 93 02/26/18 16:00 98.5 89 18 29/62 (51) 93 I/O 02/26/18 02/26/18 02/26/18 02/27/18 02/27/18 02/27/18 07:00 15:00 23:00 07:00 15:00 23:00 Intake Total 480 ml 240 ml Output Total 350 ml 300 ml Balance 130 ml -60 ml Intake Oral 480 ml 240 ml Output Urine Total 350 ml 300 ml # Bowel Movements 0 0 Laboratory Laboratory Tests Test 02/26/18 21:33 Blood Urea Nitrogen 10 Creatinine 0.63 Random Glucose 117 Calcium Level 8.0 Sodium Level 141 Potassium Level 3.5 Chloride Level 103 Carbon Dioxide Level 28.8 Anion Gap 9 Estimat Glomerular Filtration Rate 123 Imaging Last Impressions Head CT 02/26/18 0000 Signed Impressions: Service Date/Time: February 22:03 - CONCLUSION: No acute intracranial abnormality. Ermias Anaya MD Chest X-Ray 02/22/18 0600 Signed Impressions: Service Date/Time: Thursday, February 22, 2018 04:19 - CONCLUSION: Minimal right basilar atelectasis. Saurabh Maldonado Jr., MD Pelvis X-Ray 02/20/182032 Signed Impressions: Service Date/Time: Tuesday, February 20, 2018 20:29 - CONCLUSION: Lower right rib fractures. Ermias Smith MD Maxillofacial CT 02/20/182032 Signed Impressions: Service Date/Time: Tuesday, February 20, 2018 20:40 - CONCLUSION: No acute abnormality or fracture is seen. Ermias Smith MD Chest CT 02/20/182032 Signed Impressions: Service Date/Time: Tuesday, February 20, 2018 20:40 - CONCLUSION: 1. Nondisplaced sternal body fracture. 2. Right sixth through ninth rib fractures. 3. Mild increased density at the posterior lungs bilaterally likely related to atelectasis versus contusions. Ermias Smith MD Cervical Spine CT 02/20/182032 Signed Impressions: Service Date/Time: Tuesday, February 20, 2018 20:40 - CONCLUSION: 1. Degenerative change throughout. 2. There is moderate to severe posterior osteophytic ridging at the C5-C6 level and moderate posterior osteophytic ridging at the C6-C7 level. 3. No acute bony abnormalities seen. Ermias Smith MD Abdomen/Pelvis CT 02/20/182032 Signed Impressions: Service Date/Time: Tuesday, February 20, 2018 20:40 - CONCLUSION: 1. No acute intra-abdominal or pelvic abnormality seen. 2. Mild hepatic steatosis. Ermias Smith MD Physical Exam HEENT: normocephalic; atraumatic; no jaundice. Slim, speech is weakened but understandable NECK: Neck is supple, no JVD, . CHEST: Mild diminished breath sounds especially in the bases, no obvious shortness of breath at rest CARDIAC: Regular rate and rhythm ABDOMEN: Soft, nondistended, mild discomfort to light palpation, bowel sounds are present in all four quadrants., Zhang catheter, dark possible ann colored EXTREMITIES: No clubbing, cyanosis, or edema. SKIN: Pale, normal; no rash; no jaundice. EMPLOYEE RELATIONS DIRECTOR: No focal deficits; awake, answering simple questions but appears to be weakened (Lola Borjas) Assessment and Plan Plan Dysphagia onset 2 years ago but has worsened over the last few months. Patient has choking episodes and states he has to sit straight up to eat. Patient states he needs fluids at his bedside to get food down and slightly leans his head back to swallow. He does note he chews his food very well and has problems with cereal and food with roughage. Lower abdominal pain, history of Crohn's disease unknown last colonoscopy, notes chronic constipation for the last 3 days. Patient home medication included azathioprine 50 mg twice daily Current hemoglobin 11.7 EGD and colonoscopy performed 02/25/2018, findings include mild gastritis and colitis throughout the colon 02/26/2018 patient's resting in the bed, no obvious nausea or vomiting, Zhang catheter in place. Loose stool once this a.m., still having some mild diffuse abdominal pain but showing gradual improvement 02/27/2018 patient appears weakened but has been up in the chair for several hours after physical therapy worked with him this a.m.. Patient is requiring assistance with feeding and plan is for him to go to rehab. Encouraged patient to increase his activity with moving around in the bed as much as possible and attempt to feed himself. No obvious bleeding but nurse states it was reported to her that patient had some blood clots noted with BM approximately 2 days ago. None since to my knowledge. Hemoglobin is stable at 11.4 patient still has Zhang catheter in, urine possibly dark ann colored Plan Await biopsies Continue PPI Continue with current supportive care, encourage him to move around in bed and to feed himself to maintain his strength Monitor labs Further recommendations based on symptoms Supportive care Patient can be seen in the GI office if needed on an outpatient basis Patient was seen per myself and Dr. Funk, note was written on his behalf (Lola Borjas) Physician Comments Patient seen and examined Agree with above Continue with current supportive care Monitor labs Consider calorie count to assess for adequate intake We will defer to attending physician for further action Not much to add from a GI perspective unless there is a need for PEG tube We will sign off at this point (Luke Funk MD) Lola Borjas Feb 27, 2018 14:27 Luke Funk MD Feb 27, 2018 18:00
[2018-02-27] MEDS ORDERED: SODIUM CHLOR 0.9% 1000 ML INJ 1,000 ML IV ONE (16:45)
[2018-02-27] MEDS: cefTRIAXone INJ 1,000 MG in SODIUM CHLORIDE 0.9% INJ 100 ML IV SCH (17:14)
--- NOTE | 2018-02-27 17:18 | RADRPT ---
EXAM DATE/TIME: 02/27/2018 16:59 [facility] COMPARISON: CHEST SINGLE AP, February 22, 2018, 4:19. INDICATIONS : Eval/Diaphragm. MEDICAL HISTORY : Dementia. SURGICAL HISTORY : None. ENCOUNTER: Subsequent ACUITY: 1 week PAIN SCORE: 0/10 LOCATION: Bilateral chest FINDINGS: A single view of the chest demonstrates the lungs to be symmetrically aerated without evidence of mas s, or effusion. A small infiltrate in the right lung base. The cardiomediastinal contours are unrema rkable. Osseous structures are intact. CONCLUSION: Persistent small infiltrate in the right lung base. Left lung is grossly clear. Gus Galeano MD on February 27, 2018 at 17:13 Board Certified Radiologist. This report was verified electronically.
[2018-02-27 17:25] LABS: AUTOMATED NEUTROPHIL # 2.6 TH/MM3 (1.8-7.7); BASOPHIL % 0.6 % (0.0-2.0); EOSINOPHIL # 0.1 TH/MM3 (0-0.4); EOSINOPHIL % 1.8 % (0.0-4.0); HEMATOCRIT 30.7 % (39.0-51.0); HEMOGLOBIN 10.7 GM/DL (13.0-17.0); LYMPH % 15.4 % (9.0-44.0); LYMPHOCYTE # 0.6 TH/MM3 (1.0-4.8); MEAN CELL VOLUME 96.3 FL (80.0-100.0); MEAN CORPUSCULAR HEMOGLOBIN 33.7 PG (27.0-34.0); MEAN PLATELET VOLUME 6.7 FL (7.0-11.0); MONOCYTE # 0.6 TH/MM3 (0-0.9); NEUT % 66.2 % (16.0-70.0); PLATELET COUNT 265 TH/MM3 (150-450); RED BLOOD COUNT 3.18 MIL/MM3 (4.50-5.90); RED CELL DISTRIBUTION WIDTH 13.8 % (11.6-17.2)
[2018-02-27 17:56] LABS: ALBUMIN 2.8 GM/DL (3.4-5.0); ALT (GPT) 83 U/L (12-78); AST (GOT) 287 U/L (15-37); BICARBONATE 28.2 MEQ/L (21.0-32.0); BLOOD UREA NITROGEN 12 MG/DL (7-18); CHLORIDE 100 MEQ/L (98-107); CREATININE 0.71 MG/DL (0.60-1.30); GLOMERULAR FILTRATION RATE 107 ML/MIN (>89); GLUCOSE,RANDOM 108 MG/DL (74-106); SODIUM (NA) 137 MEQ/L (136-145)
[2018-02-27 17:58] LABS: ALKALINE PHOSPHATASE 222 U/L (45-117); TOTAL BILIRUBIN ADULT 1.5 MG/DL (0.2-1.0); TOTAL PROTEIN 6.9 GM/DL (6.4-8.2)
[2018-02-27 18:22] LABS: BLOOD, URINE MOD (NEG); GLUCOSE,URINE NEG (NEG); KETONE, URINE NEG (NEG); MUCUS URINE FEW /lpf (OCC); NITRITE,URINE NEG (NEG); PH, URINE 8.5 (5.0-8.5); SQUAMOUS EPITHELIAL CELL URINE <1 /hpf (0-5); URINE COLOR YELLOW (YELLW/STRAW); URINE LEUKOCYTE ESTERASE MOD (NEG)
[2018-02-27 18:23] LABS: BILIRUBIN, URINE NEG (NEG)
[2018-02-27] MEDS: REMOVE OLD LIDOCAINE PATCH T-DERMAL SCH (20:39)
[2018-02-27] MEDS: ATORVASTATIN 20 MG TAB PO SCH (20:39)
[2018-02-27] MEDS: DONEPEZIL HCL 5 MG TAB PO SCH (20:39)
[2018-02-28] VITALS (8 sets, daily range): BP systolic 116–159; BP diastolic 63–73; PULSE 79–100; RESP 16–20; TEMP 98–101.1; O2SAT 92–95
[2018-02-28] MEDS: metroNIDAZOLE 500 MG INJ 100 ML IV SCH ×4 (00:30→23:59)
[2018-02-28] MEDS: CHLORHEXIDINE GLUCONATE 2 % 1 PACK (2 CLOTHS) TOP SCH ×2 (00:41→23:59)
[2018-02-28] MEDS: CARBIDOPA/LEVODOPA 25 MG/100 MG TAB PO SCH ×3 (06:30→20:56)
[2018-02-28] MEDS: LEVOTHYROXINE SODIUM 25 MCG TAB PO SCH (06:30)
[2018-02-28] MEDS: METHOCARBAMOL 500 MG TAB PO SCH ×3 (06:31→20:56)
[2018-02-28] MEDS: HEPARIN SODIUM - SQ 10,000 UNITS/ML VIAL SQ SCH ×3 (06:31→20:56)
[2018-02-28] MEDS: DOCUSATE SODIUM 50 MG/SENNA 8.6 MG TAB PO SCH (09:00)
[2018-02-28] MEDS: POLYETHYLENE GLYCOL 17 GM PKG PO SCH (09:00)
[2018-02-28] MEDS: azaTHIOprine 50 MG TAB PO SCH ×2 (09:00→20:56)
[2018-02-28] MEDS: GABAPENTIN 300 MG CAP PO SCH ×3 (09:07→17:53)
[2018-02-28] MEDS: PANTOPRAZOLE SODIUM 40 MG VIAL IV PUSH SCH ×2 (09:07→20:55)
[2018-02-28] MEDS: TAMSULOSIN HCL 0.4 MG CAP PO SCH (09:07)
[2018-02-28] MEDS: PRIMIDONE 250 MG TAB PO SCH ×2 (09:07→20:56)
[2018-02-28] MEDS: LIDOCAINE HCL 5% PATCH T-DERMAL SCH (09:08)
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
[2018-02-28] MEDS: ACETAMINOPHEN 325 MG TAB PO PRN (16:30)
[2018-02-28 17:06] LABS: DIRECT BILIRUBIN ADULT 0.3 MG/DL (0.0-0.2); INDIRECT BILIRUBIN 0.3 MG/DL (0.0-0.8); TOTAL BILIRUBIN ADULT 0.6 MG/DL (0.2-1.0)
[2018-02-28] MEDS: cefTRIAXone INJ 1,000 MG in SODIUM CHLORIDE 0.9% INJ 100 ML IV SCH (17:53)
--- NOTE | 2018-02-28 20:53 | RADRPT ---
EXAM DATE/TIME: 02/28/2018 20:00 [facility] COMPARISON: No previous studies available for comparison. INDICATIONS : Increased lab values. MEDICAL HISTORY : Dementia. SURGICAL HISTORY : Not obtainable ENCOUNTER: Initial ACUITY: 1 day PAIN SCORE: 10 LOCATION: Right upper quadrant MEASUREMENTS: LIVER: 15.9 cm length COMMON DUCT: 4 mm RIGHT KIDNEY: 11.4 x 4.8 x 5.2 cm SPLEEN: 13.4 cm length FINDINGS: LIVER: Slightly heterogeneous without focal lesion or ductal dilatation. Hepatopedal flow. COMMON DUCT: No intraluminal mass or stone visualized. GALLBLADDER: Contains no stones, demonstrates no wall thickening or pericholecystic fluid. PANCREAS: The visualized portions are within normal limits. RIGHT KIDNEY: No hydronephrosis, stone or mass. Small right pleural effusion. SPLEEN: No focal lesion. CONCLUSION: 1. Spleen mildly enlarged. 2. Liver slightly heterogeneous. 3. Right pleural effusion. Isaac Martínez MD on February 28, 2018 at 20:47 Board Certified Radiologist. This report was verified electronically.
[2018-02-28] MEDS: ATORVASTATIN 20 MG TAB PO SCH (20:56)
[2018-02-28] MEDS: DONEPEZIL HCL 5 MG TAB PO SCH (20:56)
[2018-02-28] MEDS: REMOVE OLD LIDOCAINE PATCH T-DERMAL SCH (20:57)
[2018-03-01] VITALS: BP 145/72; PULSE 93; RESP 16; TEMP 98.7; O2SAT 99
[2018-03-01] MEDS: CARBIDOPA/LEVODOPA 25 MG/100 MG TAB PO SCH ×3 (05:24→20:41)
[2018-03-01] MEDS: LEVOTHYROXINE SODIUM 25 MCG TAB PO SCH (05:24)
[2018-03-01] MEDS: METHOCARBAMOL 500 MG TAB PO SCH ×3 (05:24→20:41)
[2018-03-01] MEDS: HEPARIN SODIUM - SQ 10,000 UNITS/ML VIAL SQ SCH ×3 (05:25→20:48)
[2018-03-01 05:53] LABS: BASOPHIL % 0.7 % (0.0-2.0); EOSINOPHIL # 0.1 TH/MM3 (0-0.4); EOSINOPHIL % 2.4 % (0.0-4.0); HEMATOCRIT 30.9 % (39.0-51.0); HEMOGLOBIN 10.7 GM/DL (13.0-17.0); LYMPH % 16.6 % (9.0-44.0); LYMPHOCYTE # 0.8 TH/MM3 (1.0-4.8); MEAN CELL VOLUME 95.4 FL (80.0-100.0); MEAN CORPUSCULAR HGB CONC 34.7 % (32.0-36.0); MEAN PLATELET VOLUME 7.2 FL (7.0-11.0); MONO % 16.4 % (0.0-8.0); MONOCYTE # 0.8 TH/MM3 (0-0.9); NEUT % 63.9 % (16.0-70.0); PLATELET COUNT 290 TH/MM3 (150-450); RED BLOOD COUNT 3.24 MIL/MM3 (4.50-5.90); WHITE BLOOD COUNT 4.7 TH/MM3 (4.0-11.0)
[2018-03-01 06:05] LABS: ALBUMIN 2.5 GM/DL (3.4-5.0); BICARBONATE 23.5 MEQ/L (21.0-32.0); CALCIUM 7.9 MG/DL (8.5-10.1); CREATININE 0.65 MG/DL (0.60-1.30); DIRECT BILIRUBIN ADULT 0.2 MG/DL (0.0-0.2)
[2018-03-01 06:07] LABS: INDIRECT BILIRUBIN 0.4 MG/DL (0.0-0.8); TOTAL BILIRUBIN ADULT 0.6 MG/DL (0.2-1.0); TOTAL PROTEIN 6.7 GM/DL (6.4-8.2)
[2018-03-01 08:00] VITALS: BP 132/61; PULSE 86; RESP 18; TEMP 98.2; O2SAT 92
[2018-03-01] MEDS: TAMSULOSIN HCL 0.4 MG CAP PO SCH (08:40)
[2018-03-01] MEDS: GABAPENTIN 300 MG CAP PO SCH ×3 (08:40→17:41)
[2018-03-01] MEDS: PRIMIDONE 250 MG TAB PO SCH ×2 (08:40→20:41)
[2018-03-01] MEDS: azaTHIOprine 50 MG TAB PO SCH ×2 (08:40→20:41)
[2018-03-01] MEDS: LIDOCAINE HCL 5% PATCH T-DERMAL SCH (08:41)
[2018-03-01] MEDS: PANTOPRAZOLE SODIUM 40 MG VIAL IV PUSH SCH ×2 (08:41→20:40)
[2018-03-01] MEDS: metroNIDAZOLE 500 MG INJ 100 ML IV SCH ×2 (08:41→16:38)
[2018-03-01] MEDS: POLYETHYLENE GLYCOL 17 GM PKG PO SCH (08:41)
[2018-03-01 12:40] VITALS: BP 148/69; PULSE 97; RESP 18; TEMP 99.9; O2SAT 92
[2018-03-01 16:00] VITALS: BP 149/63; PULSE 107; RESP 17; TEMP 98.1; O2SAT 93
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
[2018-03-01] MEDS ORDERED: POTASSIUM CHLORIDE 20 MEQ CONTROLLED RELEASE TAB PO ONE (17:00)
[2018-03-01 20:00] VITALS: BP 132/62; PULSE 94; RESP 19; TEMP 97.1; O2SAT 91
[2018-03-01] MEDS: ATORVASTATIN 20 MG TAB PO SCH (20:41)
[2018-03-01] MEDS: DONEPEZIL HCL 5 MG TAB PO SCH (20:41)
[2018-03-01] MEDS: REMOVE OLD LIDOCAINE PATCH T-DERMAL SCH (20:41)
[2018-03-01 21:40] VITALS: O2SAT 93
[2018-03-02] VITALS: BP 135/67; PULSE 97; RESP 19; TEMP 98; O2SAT 95
[2018-03-02] MEDS: metroNIDAZOLE 500 MG INJ 100 ML IV SCH ×3 (00:32→16:14)
[2018-03-02] MEDS: CHLORHEXIDINE GLUCONATE 2 % 1 PACK (2 CLOTHS) TOP SCH (00:32)
[2018-03-02] MEDS: HEPARIN SODIUM - SQ 10,000 UNITS/ML VIAL SQ SCH ×3 (06:13→21:59)
[2018-03-02] MEDS: METHOCARBAMOL 500 MG TAB PO SCH ×2 (06:14→13:35)
[2018-03-02] MEDS: CARBIDOPA/LEVODOPA 25 MG/100 MG TAB PO SCH ×3 (06:14→21:59)
[2018-03-02] MEDS: LEVOTHYROXINE SODIUM 25 MCG TAB PO SCH (06:14)
[2018-03-02 08:00] VITALS: BP 146/63; PULSE 89; RESP 19; TEMP 99.8; O2SAT 92
[2018-03-02] MEDS: PANTOPRAZOLE SODIUM 40 MG VIAL IV PUSH SCH ×2 (08:30→22:00)
[2018-03-02] MEDS: PRIMIDONE 250 MG TAB PO SCH (08:31)
[2018-03-02] MEDS: GABAPENTIN 300 MG CAP PO SCH ×2 (08:31→13:35)
[2018-03-02] MEDS: azaTHIOprine 50 MG TAB PO SCH ×2 (08:31→21:58)
[2018-03-02] MEDS: LIDOCAINE HCL 5% PATCH T-DERMAL SCH (08:31)
[2018-03-02] MEDS: TAMSULOSIN HCL 0.4 MG CAP PO SCH (08:31)
[2018-03-02] MEDS: POLYETHYLENE GLYCOL 17 GM PKG PO SCH (08:31)
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
[2018-03-02 12:00] VITALS: BP 150/69; PULSE 89; RESP 19; TEMP 99.1; O2SAT 93
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
[2018-03-02 14:31] LABS: AUTOMATED NEUTROPHIL # 4.9 TH/MM3 (1.8-7.7); BASOPHIL % 0.5 % (0.0-2.0); EOSINOPHIL % 0.8 % (0.0-4.0); HEMOGLOBIN 11.2 GM/DL (13.0-17.0); LYMPH % 7.1 % (9.0-44.0); LYMPHOCYTE # 0.4 TH/MM3 (1.0-4.8); MEAN CELL VOLUME 94.7 FL (80.0-100.0); MEAN CORPUSCULAR HGB CONC 34.9 % (32.0-36.0); MEAN PLATELET VOLUME 6.9 FL (7.0-11.0); MONO % 13.2 % (0.0-8.0); MONOCYTE # 0.8 TH/MM3 (0-0.9); NEUT % 78.4 % (16.0-70.0); PLATELET COUNT 352 TH/MM3 (150-450); RED BLOOD COUNT 3.38 MIL/MM3 (4.50-5.90); RED CELL DISTRIBUTION WIDTH 13.6 % (11.6-17.2); WHITE BLOOD COUNT 6.2 TH/MM3 (4.0-11.0)
[2018-03-02 14:47] LABS: ALBUMIN 2.6 GM/DL (3.4-5.0); BICARBONATE 23.9 MEQ/L (21.0-32.0); BLOOD UREA NITROGEN 9 MG/DL (7-18); CALCIUM 8.4 MG/DL (8.5-10.1); CHLORIDE 100 MEQ/L (98-107); CREATININE 0.74 MG/DL (0.60-1.30); GLOMERULAR FILTRATION RATE 102 ML/MIN (>89); GLUCOSE,RANDOM 113 MG/DL (74-106); SODIUM (NA) 134 MEQ/L (136-145)
[2018-03-02 14:48] LABS: ALT (GPT) 24 U/L (12-78); AST (GOT) 24 U/L (15-37)
[2018-03-02 14:50] LABS: ALKALINE PHOSPHATASE 166 U/L (45-117); TOTAL BILIRUBIN ADULT 0.7 MG/DL (0.2-1.0); TOTAL PROTEIN 6.8 GM/DL (6.4-8.2)
[2018-03-02 16:00] VITALS: BP 131/63; PULSE 97; RESP 19; TEMP 102.9; O2SAT 90
[2018-03-02] MEDS: ACETAMINOPHEN 325 MG TAB PO PRN (16:14)
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
[2018-03-02 18:21] LABS: FREE T4 1.21 NG/DL (0.76-1.46)
[2018-03-02 18:38] VITALS: TEMP 101
[2018-03-02 20:00] VITALS: BP 124/64; PULSE 106; RESP 19; TEMP 101; O2SAT 92
[2018-03-02] MEDS: REMOVE OLD LIDOCAINE PATCH T-DERMAL SCH (21:00)
[2018-03-02] MEDS: DONEPEZIL HCL 5 MG TAB PO SCH (21:59)
[2018-03-02] MEDS: ATORVASTATIN 20 MG TAB PO SCH (21:59)
[2018-03-02] MEDS: PRIMIDONE 50 MG TAB PO SCH (22:04)
[2018-03-03] VITALS: BP 132/63; PULSE 95; RESP 18; TEMP 101.4; O2SAT 91
[2018-03-03] MEDS: ACETAMINOPHEN 325 MG TAB PO PRN ×3 (00:15→17:28)
[2018-03-03] MEDS: metroNIDAZOLE 500 MG INJ 100 ML IV SCH ×3 (00:54→15:05)
[2018-03-03] MEDS: CHLORHEXIDINE GLUCONATE 2 % 1 PACK (2 CLOTHS) TOP SCH ×2 (04:00→21:30)
[2018-03-03] MEDS: HEPARIN SODIUM - SQ 10,000 UNITS/ML VIAL SQ SCH ×3 (06:13→21:21)
[2018-03-03] MEDS: LEVOTHYROXINE SODIUM 25 MCG TAB PO SCH (06:13)
[2018-03-03] MEDS: CARBIDOPA/LEVODOPA 25 MG/100 MG TAB PO SCH ×3 (06:14→21:18)
[2018-03-03 08:00] VITALS: BP 123/59; PULSE 84; RESP 18; TEMP 99.3; O2SAT 92
[2018-03-03 08:12] VITALS: O2SAT 92
[2018-03-03] MEDS: TAMSULOSIN HCL 0.4 MG CAP PO SCH (08:19)
[2018-03-03] MEDS: azaTHIOprine 50 MG TAB PO SCH ×2 (08:19→21:16)
[2018-03-03] MEDS: LIDOCAINE HCL 5% PATCH T-DERMAL SCH (08:19)
[2018-03-03] MEDS: POLYETHYLENE GLYCOL 17 GM PKG PO SCH (08:19)
[2018-03-03] MEDS: PANTOPRAZOLE SODIUM 40 MG VIAL IV PUSH SCH (08:20)
[2018-03-03] MEDS: PRIMIDONE 50 MG TAB PO SCH ×2 (08:20→21:16)
[2018-03-03] MEDS: VANCOMYCIN 500 MG VIAL (FOR ORAL USE ONLY) PO SCH ×4 (10:05→21:19)
[2018-03-03] MEDS ORDERED: GADODIAMIDE PF 287 MG/ML 20 ML VIAL (for RAD MRI) IVCONTRAST ONE (11:42)
[2018-03-03 12:00] VITALS: BP 114/62; PULSE 90; RESP 18; TEMP 98.1; O2SAT 94
--- NOTE | 2018-03-03 12:17 | RADRPT ---
EXAM DATE/TIME: 03/03/2018 10:46 [facility] COMPARISON: CT CERVICAL SPINE W/O CONTRAST, March 02, 2018, 13:02. CT CERVICAL SPINE W/O CONTRAST, February 20 8, 20:40. INDICATIONS : Increasing neck pain. MEDICAL HISTORY : Dementia. Celiac SURGICAL HISTORY : EGD ENCOUNTER: Subsequent ACUITY: 2 weeks PAIN SCORE: 2/10 LOCATION: neck TECHNIQUE: Multiplanar, multisequence MRI examination of the cervical spine was performed. FINDINGS: There is preservation of vertebral body height. Mild retrolisthesis of C5 and C6 is similar to prior scans. There is loss of CSF ventral to the cervical cord from C4-C6. The atlantoaxial articulation is intact. The visualized posterior fossa structures are intact. There is flattening and indentati on on the ventral margin of the cervical cord at C4-5, C5-6, and C6-7 without focal signal abnormalit y within the substance of the cervical cord. No evidence of syrinx. C2-C3: The thecal sac has a normal configuration. There is no evidence of disc herniation or spinal canal s tenosis. The neural foramina are patent bilaterally. C3-C4: Left paracentral osteophyte causes focal indentation on the thecal sac. CSF is still seen about the cervical cord. Mild bilateral neural foraminal stenosis. C4-C5: Central protrusion of the disc causes flattening of the cervical cord and loss of CSF ventral to the cervical. No lateral extension. moderate right and mild left sided bony neural foraminal stenosis. C5-C6: Prominent ridge of osteophyte causes focal indentation on the cervical cord and the AP dimension of t he cervical cord is decreased to 5 mm. There is severe bilateral bony neural foraminal stenosis. C6-C7: Ridge of osteophytes causes flattening of the ventral margin of the thecal sac and cervical cord and loss of CSF ventral to the cervical cord. There is severe right-sided and moderate left sided bony n eural foraminal stenosis. C7-T1: The thecal sac has a normal configuration. There is no evidence of disc herniation or spinal canal s tenosis. The neural foramina are patent bilaterally. CONCLUSION: 1. Evidence of mild cord compression at the C5-6 and C6-7 levels due to prominent osteophytic ridging . 2. Central protrusion of the C4-5 disc causes flattening of the ventral margin of the cervical cord b ut no cord compression. 3. Multilevel bilateral bony neural foraminal stenosis. Saurabh Casas MD on March 03, 2018 at 12:08 Board Certified Radiologist. This report was verified electronically.
--- NOTE | 2018-03-03 12:30 | RADRPT ---
EXAM DATE/TIME: 03/03/2018 10:46 [facility] COMPARISON: CT BRAIN W/O CONTRAST, March 02, 2018, 13:02. INDICATIONS : Increasing neck pain. CONTRAST: 16 cc Omniscan (gadodiamide) IV MEDICAL HISTORY : Dementia. Celiac SURGICAL HISTORY : EGD ENCOUNTER: Subsequent ACUITY: 2 weeks PAIN SCORE: 2/10 LOCATION: neck TECHNIQUE: Multiplanar, multisequence MRI of the brain was performed both prior to and following the administrat ion of paramagnetic contrast. FINDINGS: CEREBRUM: The ventricles are normal for age with diffuse moderate atrophic changes. No evidence of midline shif t, mass lesion, hemorrhage or acute infarction. No extraaxial fluid collections are seen. The pitui tary gland and suprasellar cistern are normal in configuration. WHITE MATTER: On the flair weighted images there are multiple scattered punctate areas of increased signal noted th roughout the white matter characteristic of chronic small vessel ischemic change. POSTERIOR FOSSA: The cerebellum and brainstem are intact. The 4th ventricle is midline. The cerebellopontine angle is unremarkable. The cerebellar tonsils are normal in position. DIFFUSION IMAGING: No focal areas of restricted diffusion are seen. No evidence of acute infarction. EXTRACRANIAL: The visualized portions of the orbits and paranasal sinuses are unremarkable. POST-CONTRAST: No abnormal areas of parenchymal or dural enhancement. No evidence of blood-brain barrier breakdown. CONCLUSION: 1. No acute hemorrhage, mass or evidence of infarction. 2. Moderate atrophic change and chronic small vessel ischemic changes. Carson Fallon MD on March 03, 2018 at 12:25 Board Certified Radiologist. This report was verified electronically.
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
[2018-03-03 16:00] VITALS: BP 123/59; PULSE 99; RESP 18; TEMP 100.8; O2SAT 93
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
[2018-03-03] MEDS ORDERED: FAMOTIDINE 20 MG TAB PO SCH (18:00)
[2018-03-03 20:00] VITALS: BP 122/57; PULSE 90; RESP 18; TEMP 98.7; O2SAT 92
[2018-03-03] MEDS: REMOVE OLD LIDOCAINE PATCH T-DERMAL SCH (21:00)
[2018-03-03] MEDS: PANTOPRAZOLE SOD 40 MG DELAYED RELEASE TAB PO SCH (21:16)
[2018-03-03] MEDS: DONEPEZIL HCL 5 MG TAB PO SCH (21:17)
[2018-03-03] MEDS: ATORVASTATIN 20 MG TAB PO SCH (21:19)
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
[2018-03-04] VITALS (8 sets, daily range): BP systolic 111–141; BP diastolic 54–67; PULSE 76–97; RESP 17; TEMP 97.3–99.7; O2SAT 92–98
[2018-03-04] MEDS: LEVOTHYROXINE SODIUM 25 MCG TAB PO SCH (05:15)
[2018-03-04] MEDS: HEPARIN SODIUM - SQ 10,000 UNITS/ML VIAL SQ SCH ×3 (05:15→21:58)
[2018-03-04] MEDS: CARBIDOPA/LEVODOPA 25 MG/100 MG TAB PO SCH ×2 (05:15→12:44)
[2018-03-04] MEDS: ACETAMINOPHEN 325 MG TAB PO PRN (05:16)
--- NOTE | 2018-03-04 07:37 | HHI.PR ---
Objective Vital Signs Date Time Temp Pulse Resp B/P (MAP) Pulse Ox O2 Delivery O2 Flow Rate FiO2 03/04/18 04:00 98.3 86 17 111/54 (73) 92 03/04/18 00:00 99.7 88 17 113/65 (81) 92 03/03/18 20:00 98.7 90 18 122/57 (78) 92 03/03/18 16:00 100.8 99 18 123/59 (80) 93 03/03/18 12:00 98.1 90 18 114/62 (79) 94 03/03/18 08:12 92 21 03/03/18 08:00 99.3 84 18 123/59 (80) 92 I/O 03/03/18 03/03/18 03/03/18 03/04/18 03/04/18 03/04/18 07:00 15:00 23:00 07:00 15:00 23:00 Intake Total 240 ml 680 ml Output Total 1200 ml 950 ml Balance -960 ml -270 ml Intake Oral 240 ml 480 ml IV Total 200 ml Output Urine Total 1200 ml 950 ml Bladder Scan Volume Amount 599 ml # Bowel Movements 0 Result Diagram: 03/02/18 1415 03/02/18 1415 Objective Remarks awake alert some dementia no trmor right now w PT retropulses Assessment and Plan Assessment and Plan imp pd on inc sinemet will need rehab i dced primidone and will adjust meds over time check standing bp i dw nurses mri brain and c spine ok lab ok no nph on mr could go to rehab if stand bp ok and fu office Ron Moss MD March 04, 2018 07:37
[2018-03-04] MEDS: azaTHIOprine 50 MG TAB PO SCH ×2 (08:03→21:58)
[2018-03-04] MEDS: POLYETHYLENE GLYCOL 17 GM PKG PO SCH (08:03)
[2018-03-04] MEDS: TAMSULOSIN HCL 0.4 MG CAP PO SCH (08:03)
[2018-03-04] MEDS: PANTOPRAZOLE SOD 40 MG DELAYED RELEASE TAB PO SCH ×2 (08:03→22:02)
[2018-03-04] MEDS: LIDOCAINE HCL 5% PATCH T-DERMAL SCH (08:04)
[2018-03-04] MEDS: VANCOMYCIN 500 MG VIAL (FOR ORAL USE ONLY) PO SCH ×4 (08:04→21:57)
[2018-03-04 08:50] LABS: AUTOMATED NEUTROPHIL # 4.1 TH/MM3 (1.8-7.7); BASOPHIL % 0.4 % (0.0-2.0); EOSINOPHIL # 0.1 TH/MM3 (0-0.4); EOSINOPHIL % 1.6 % (0.0-4.0); HEMATOCRIT 28.9 % (39.0-51.0); HEMOGLOBIN 10.1 GM/DL (13.0-17.0); LYMPH % 11.2 % (9.0-44.0); LYMPHOCYTE # 0.6 TH/MM3 (1.0-4.8); MEAN CORPUSCULAR HEMOGLOBIN 33.2 PG (27.0-34.0); MONOCYTE # 0.5 TH/MM3 (0-0.9); NEUT % 76.8 % (16.0-70.0); PLATELET COUNT 347 TH/MM3 (150-450); RED BLOOD COUNT 3.04 MIL/MM3 (4.50-5.90); RED CELL DISTRIBUTION WIDTH 13.8 % (11.6-17.2); WHITE BLOOD COUNT 5.3 TH/MM3 (4.0-11.0)
[2018-03-04 09:16] LABS: ALBUMIN 2.3 GM/DL (3.4-5.0); BICARBONATE 25.7 MEQ/L (21.0-32.0); CALCIUM 8.3 MG/DL (8.5-10.1); CREATININE 0.55 MG/DL (0.60-1.30); MAGNESIUM 2.2 MG/DL (1.5-2.5); PHOSPHORUS 3.3 MG/DL (2.5-4.9)
--- NOTE | 2018-03-04 15:05 | HHI.GIFU ---
Subjective Remarks Pt resting in bed, talking on phone. No fever today. didn't eat lunch. (Ines Dykes) Objective Vitals I&O Vital Signs Date Time Temp Pulse Resp B/P (MAP) Pulse Ox O2 Delivery O2 Flow Rate FiO2 03/04/18 13:32 92 21 03/04/18 12:00 98.2 76 17 126/61 (82) 95 03/04/18 12:00 97.6 97 17 141/67 (91) 97 03/04/18 12:00 97.6 90 17 123/62 (82) 95 03/04/18 08:00 97.6 93 17 124/60 (81) 98 03/04/18 08:00 97.3 81 17 127/56 (79) 97 03/04/18 08:00 97.7 78 17 125/59 (81) 96 03/04/18 04:00 98.3 86 17 111/54 (73) 92 03/04/18 00:00 99.7 88 17 113/65 (81) 92 03/03/18 20:00 98.7 90 18 122/57 (78) 92 03/03/18 16:00 100.8 99 18 123/59 (80) 93 I/O 03/03/18 03/03/18 03/03/18 03/04/18 03/04/18 03/04/18 07:00 15:00 23:00 07:00 15:00 23:00 Intake Total 240 ml 680 ml Output Total 1200 ml 950 ml Balance -960 ml -270 ml Intake Oral 240 ml 480 ml IV Total 200 ml Output Urine Total 1200 ml 950 ml Bladder Scan Volume Amount 599 ml # Bowel Movements 0 Laboratory Laboratory Tests Test 03/04/18 07:05 White Blood Count 5.3 Red Blood Count 3.04 Hemoglobin 10.1 Hematocrit 28.9 Mean Corpuscular Volume 95.0 Mean Corpuscular Hemoglobin 33.2 Mean Corpuscular Hemoglobin Concent 35.0 Red Cell Distribution Width 13.8 Platelet Count 347 Mean Platelet Volume 7.0 Neutrophils (%) (Auto) 76.8 Lymphocytes (%) (Auto) 11.2 Monocytes (%) (Auto) 10.0 Eosinophils (%) (Auto) 1.6 Basophils (%) (Auto) 0.4 Neutrophils # (Auto) 4.1 Lymphocytes # (Auto) 0.6 Monocytes # (Auto) 0.5 Eosinophils # (Auto) 0.1 Basophils # (Auto) 0.0 CBC Comment DIFF FINAL Differential Comment Blood Urea Nitrogen 9 Creatinine 0.55 Random Glucose 107 Albumin 2.3 Calcium Level 8.3 Phosphorus Level 3.3 Magnesium Level 2.2 Sodium Level 138 Potassium Level 3.7 Chloride Level 102 Carbon Dioxide Level 25.7 Anion Gap 10 Estimat Glomerular Filtration Rate 143 Date/Time Source Procedure Growth Status 03/03/18 09:35 Blood Peripheral Aerobic Blood Culture - Preliminary NO GROWTH IN 1 DAY Resulted 03/03/18 09:35 Blood Peripheral Anaerobic Blood Culture - Preliminary NO GROWTH IN 1 DAY Resulted 02/27/18 17:45 Urine Catheterized Urine Urine Culture - Final NO GROWTH IN 48 HOURS. Complete Imaging Last Impressions Cervical Spine MRI 03/03/18 1555 Signed Impressions: Service Date/Time: Saturday, March 03, 2018 10:46 - CONCLUSION: 1. Evidence of mild cord compression at the C5-6 and C6-7 levels due to prominent osteophytic ridging. 2. Central protrusion of the C4-5 disc causes flattening of the ventral margin of the cervical cord but no cord compression. 3. Multilevel bilateral bony neural foraminal stenosis. Saurabh Casas MD Brain MRI 03/03/18 1555 Signed Impressions: Service Date/Time: Saturday, March 03, 2018 10:46 - CONCLUSION: 1. No acute hemorrhage, mass or evidence of infarction. 2. Moderate atrophic change and chronic small vessel ischemic changes. Carson Fallon MD Head CT 03/02/18 0000 Signed Impressions: Service Date/Time: Friday, March 02, 2018 13:02 - CONCLUSION: 1. No acute intracranial abnormality identified. Yaron Montoya MD Cervical Spine CT 03/02/18 0000 Signed Impressions: Service Date/Time: Friday, March 02, 2018 13:02 - CONCLUSION: 1. No acute fracture the cervical spine identified. 2. Advanced degenerative changes with areas of spinal stenosis as noted in detail above. Yaron Montoya MD Liver Ultrasound 02/28/18 0000 Signed Impressions: Service Date/Time: Wednesday, February 28, 2018 20:00 - CONCLUSION: 1. Spleen mildly enlarged. 2. Liver slightly heterogeneous. 3. Right pleural effusion. Isaac Martínez MD Chest X-Ray 02/27/18 0000 Signed Impressions: Service Date/Time: Tuesday, February 27, 2018 16:59 - CONCLUSION: Persistent small infiltrate in the right lung base. Left lung is grossly clear. Gus Galeano MD Pelvis X-Ray 02/20/182032 Signed Impressions: Service Date/Time: Tuesday, February 20, 2018 20:29 - CONCLUSION: Lower right rib fractures. Ermias Smith MD Maxillofacial CT 02/20/182032 Signed Impressions: Service Date/Time: Tuesday, February 20, 2018 20:40 - CONCLUSION: No acute abnormality or fracture is seen. Ermias Smith MD Chest CT 02/20/182032 Signed Impressions: Service Date/Time: Tuesday, February 20, 2018 20:40 - CONCLUSION: 1. Nondisplaced sternal body fracture. 2. Right sixth through ninth rib fractures. 3. Mild increased density at the posterior lungs bilaterally likely related to atelectasis versus contusions. Ermias Smith MD Abdomen/Pelvis CT 02/20/182032 Signed Impressions: Service Date/Time: Tuesday, February 20, 2018 20:40 - CONCLUSION: 1. No acute intra-abdominal or pelvic abnormality seen. 2. Mild hepatic steatosis. Ermias Smith MD Physical Exam HEENT: normocephalic; atraumatic; CHEST: CTA CARDIAC: RRR ABDOMEN: Soft, nondistended, nontender, bowel sounds are present in all four quadrants. EXTREMITIES: No clubbing, cyanosis, or edema. SKIN: Pale, normal; no rash; no jaundice. DIRECTOR PRODUCT: tremulous (Ines Dykes S RESEARCH RECRUITER) Assessment and Plan Plan History of Crohn's disease, reconsult to see patient for fevers, transaminitis, , patient is currently positive for C. difficile and a positive urine is noted culture pending. 03/02/2018 patient had an AST of 59 which has normalized today at 24, ALT 35 now 24. ERICA is pending, RPR and hepatitis panel is negative, patient is nonalcoholic and no alcohol noted for 25 years Fever could be related to UTI and/or patient's colitis. Currently patient states no diarrhea EGD and colonoscopy performed 02/25/2018, findings include mild gastritis and colitis throughout the colon 02/26/2018 patient's resting in the bed, no obvious nausea or vomiting, Zhang catheter in place. Loose stool once this a.m., still having some mild diffuse abdominal pain but showing gradual improvement 02/27/2018 patient appears weakened but has been up in the chair for several hours after physical therapy worked with him this a.m.. Patient is requiring assistance with feeding and plan is for him to go to rehab. Encouraged patient to increase his activity with moving around in the bed as much as possible and attempt to feed himself. No obvious bleeding but nurse states it was reported to her that patient had some blood clots noted with BM approximately 2 days ago. None since to my knowledge. Hemoglobin is stable at 11.4 patient still has Zhang catheter in, urine possibly dark ann colored 03/04/18 denies diarrhea. is being treated for c diff. ID following. no fever today. 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 WBC is WNL Plan KIRILL PPI Monitor labs abx per ID Supportive care Patient was seen per myself and Dr. Floyd, note was written on his behalf (Ines Dykes) Plan Patient was seen and examined, agree with above note, we will need to repeat colonoscopy in few weeks to make sure that patient does not have IBD and this is all related to C. difficile, he is afebrile now, we will sign off at this point (Kendra Floyd MD) Ines Dykes March 04, 2018 15:05 Kendra Floyd MD March 04, 2018 22:03
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
[2018-03-04] MEDS: REMOVE OLD LIDOCAINE PATCH T-DERMAL SCH (21:00)
[2018-03-04] MEDS: CHLORHEXIDINE GLUCONATE 2 % 1 PACK (2 CLOTHS) TOP SCH (21:58)
[2018-03-04] MEDS: ATORVASTATIN 20 MG TAB PO SCH (21:58)
[2018-03-04] MEDS: DONEPEZIL HCL 5 MG TAB PO SCH (21:58)
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
[2018-03-05] VITALS: BP 130/62; PULSE 82; RESP 17; TEMP 98.5; O2SAT 94
[2018-03-05] MEDS: HEPARIN SODIUM - SQ 10,000 UNITS/ML VIAL SQ SCH ×3 (05:49→20:40)
[2018-03-05] MEDS: LEVOTHYROXINE SODIUM 25 MCG TAB PO SCH (05:49)
--- NOTE | 2018-03-05 07:30 | HHI.PR ---
Objective Vital Signs Date Time Temp Pulse Resp B/P (MAP) Pulse Ox O2 Delivery O2 Flow Rate FiO2 03/05/18 00:00 98.5 82 17 130/62 (84) 94 03/04/18 22:11 124/63 (83) 125/62 (83) 133/64 (87) 03/04/18 20:00 98.3 84 17 133/65 (87) 95 03/04/18 16:00 98.0 82 17 114/63 (80) 94 03/04/18 16:00 97.8 82 17 113/56 (75) 94 03/04/18 16:00 98.1 92 17 121/65 (83) 96 03/04/18 13:32 92 21 03/04/18 12:00 98.2 76 17 126/61 (82) 95 03/04/18 12:00 97.6 97 17 141/67 (91) 97 03/04/18 12:00 97.6 90 17 123/62 (82) 95 03/04/18 08:00 97.6 93 17 124/60 (81) 98 03/04/18 08:00 97.3 81 17 127/56 (79) 97 03/04/18 08:00 97.7 78 17 125/59 (81) 96 I/O 03/04/18 03/04/18 03/04/18 03/05/18 03/05/18 03/05/18 07:00 15:00 23:00 07:00 15:00 23:00 Intake Total 720 ml 240 ml Output Total 1175 ml 1000 ml Balance -455 ml -760 ml Intake Oral 720 ml 240 ml Output Urine Total 1175 ml 1000 ml # Bowel Movements 2 1 Result Diagram: 03/04/18 0703/04/18704 Objective Remarks awake alert some dementia no tremor right now bue mild moves all more coherent Assessment and Plan Assessment and Plan imp pd on inc sinemet will need rehab i dced primidone and will adjust meds over time check standing ok mri brain and c spine ok lab ok no nph on mr could go to rehab and fu office more coherent off primidone oob most of day Ron Moss MD March 05, 2018 07:30
[2018-03-05 08:00] VITALS: BP 147/71; PULSE 71; RESP 19; TEMP 97.8; O2SAT 95
[2018-03-05] MEDS: TAMSULOSIN HCL 0.4 MG CAP PO SCH (08:06)
[2018-03-05] MEDS: azaTHIOprine 50 MG TAB PO SCH ×2 (08:06→20:39)
[2018-03-05] MEDS: LIDOCAINE HCL 5% PATCH T-DERMAL SCH (08:06)
[2018-03-05] MEDS: PANTOPRAZOLE SOD 40 MG DELAYED RELEASE TAB PO SCH ×2 (08:06→20:39)
[2018-03-05] MEDS: CARBIDOPA/LEVODOPA 25 MG/100 MG TAB PO SCH ×3 (08:06→16:49)
[2018-03-05] MEDS: VANCOMYCIN 500 MG VIAL (FOR ORAL USE ONLY) PO SCH ×4 (08:06→20:40)
[2018-03-05] MEDS: POLYETHYLENE GLYCOL 17 GM PKG PO SCH (08:06)
[2018-03-05 11:07] LABS: METHYLMALONIC ACID 0.14 nmol/mL (<=0.40)
[2018-03-05 12:00] VITALS: BP_SYST 122; BP_SYST 124; BP_SYST 127; BP_DIAS 58; BP_DIAS 65; BP_DIAS 69; PULSE 74; RESP 18; TEMP 97.6; O2SAT 97
[2018-03-05] MEDS ORDERED: CARB25TA9 PO (12:24)
[2018-03-05] MEDS ORDERED: PANT40TA3 PO (12:24)
[2018-03-05] MEDS ORDERED: VANC500I3 PO (12:24)
[2018-03-05 16:00] VITALS: BP 119/61; PULSE 77; RESP 17; TEMP 98; O2SAT 97
[2018-03-05 20:00] VITALS: BP 125/61; PULSE 79; RESP 18; TEMP 98.1; O2SAT 95
[2018-03-05] MEDS: DONEPEZIL HCL 5 MG TAB PO SCH (20:38)
[2018-03-05] MEDS: ATORVASTATIN 20 MG TAB PO SCH (20:39)
[2018-03-05] MEDS: CHLORHEXIDINE GLUCONATE 2 % 1 PACK (2 CLOTHS) TOP SCH (20:40)
[2018-03-05] MEDS: REMOVE OLD LIDOCAINE PATCH T-DERMAL SCH (20:47)
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
[2018-03-06] VITALS: BP 127/60; PULSE 80; RESP 18; TEMP 98.6; O2SAT 96
[2018-03-06] MEDS: LEVOTHYROXINE SODIUM 25 MCG TAB PO SCH (05:16)
[2018-03-06] MEDS: HEPARIN SODIUM - SQ 10,000 UNITS/ML VIAL SQ SCH ×2 (05:17→12:48)
[2018-03-06 08:00] VITALS: BP 115/63; PULSE 74; RESP 17; TEMP 98; O2SAT 94
[2018-03-06] MEDS: CARBIDOPA/LEVODOPA 25 MG/100 MG TAB PO SCH ×2 (08:23→11:55)
[2018-03-06] MEDS: POLYETHYLENE GLYCOL 17 GM PKG PO SCH (08:23)
[2018-03-06] MEDS: TAMSULOSIN HCL 0.4 MG CAP PO SCH (08:23)
[2018-03-06] MEDS: VANCOMYCIN 500 MG VIAL (FOR ORAL USE ONLY) PO SCH ×2 (08:23→11:55)
[2018-03-06] MEDS: PANTOPRAZOLE SOD 40 MG DELAYED RELEASE TAB PO SCH (08:23)
[2018-03-06] MEDS: LIDOCAINE HCL 5% PATCH T-DERMAL SCH (08:23)
[2018-03-06] MEDS: azaTHIOprine 50 MG TAB PO SCH (08:23)
[2018-03-06 12:00] VITALS: BP 120/62; PULSE 72; RESP 17; TEMP 97.3; O2SAT 96
[2018-03-06 16:37] LABS: ANA PATTERN DIFFUSE
== END 2018-03-06 15:22 | DRG 184 ==
LOC: NEPI 20:31 → NEDA 21:17 → EDBD 21:42 → OBSVTOIN 21:42 → NEDH 02-21 01:32 → N06A 02-21 13:51 → N07B 02-28 01:19
PROVIDERS: ADMIT Family Medicine; ATTEND Family Medicine
PROC: 0T9B70Z Drainage of Bladder with Drainage Device, Via Natural or Artificial Opening (ICD-10-PCS; 2018-02-24)
PROC: 0DBK8ZX Excision of Ascending Colon, Via Natural or Artificial Opening Endoscopic, Diagnostic (ICD-10-PCS; 2018-02-25)
PROC: 0DBE8ZX Excision of Large Intestine, Via Natural or Artificial Opening Endoscopic, Diagnostic (ICD-10-PCS; 2018-02-25)
PROC: 0DBP8ZX Excision of Rectum, Via Natural or Artificial Opening Endoscopic, Diagnostic (ICD-10-PCS; 2018-02-25)
PROC: 0DBM8ZX Excision of Descending Colon, Via Natural or Artificial Opening Endoscopic, Diagnostic (ICD-10-PCS; 2018-02-25)
PROC: 0DB58ZX Excision of Esophagus, Via Natural or Artificial Opening Endoscopic, Diagnostic (ICD-10-PCS; principal; 2018-02-25 14:16)
PROC: 0DB68ZX Excision of Stomach, Via Natural or Artificial Opening Endoscopic, Diagnostic (ICD-10-PCS; 2018-02-25 14:16)
PROC: 0T9B70Z Drainage of Bladder with Drainage Device, Via Natural or Artificial Opening (ICD-10-PCS; 2018-03-01)
DX: S22.20XA Unspecified fracture of sternum, initial encounter for closed fracture (principal); A04.72 Enterocolitis due to Clostridium difficile, not specified as recurrent; S22.41XA Multiple fractures of ribs, right side, initial encounter for closed fracture; S27.321A Contusion of lung, unilateral, initial encounter; G20 Parkinson's disease; K50.90 Crohn's disease, unspecified, without complications; T17.918A Gastric contents in respiratory tract, part unspecified causing other injury, initial encounter; S06.0X9A Concussion with loss of consciousness of unspecified duration, initial encounter; J98.11 Atelectasis; S51.011A Laceration without foreign body of right elbow, initial encounter; V48.5XXA Car driver injured in noncollision transport accident in traffic accident, initial encounter; Y92.410 Unspecified street and highway as the place of occurrence of the external cause; Y93.89 Activity, other specified; E78.5 Hyperlipidemia, unspecified; F02.80 Dementia in other diseases classified elsewhere, unspecified severity, without behavioral disturbance, psychotic disturbance, mood disturbance, and anxiety; E03.9 Hypothyroidism, unspecified; I10 Essential (primary) hypertension; R13.10 Dysphagia, unspecified; K59.00 Constipation, unspecified; N40.1 Benign prostatic hyperplasia with lower urinary tract symptoms; R33.8 Other retention of urine; K29.70 Gastritis, unspecified, without bleeding; M54.2 Cervicalgia
CPT/HCPCS: 70450; 70486; 70553; 71045; 71260; 72125; 72141; 72170; 74177; 76705; 80048; 80053; 80069; 80074; 80076; 81001; 82247; 82248; 82550; 82607; 82948; 83605; 83735; 83921; 84425; 84439; 84443; 84484; 85025; 85027; 85610; 85730; 86038; 86039; 86592; 86850; 86900; 86901; 87040; 87086; 87493; 88305; 88312; 90715; 93005; 94150; 94640; 94664; 94667; 94668; A9579; C9113; J0131; J0690; J0696; J1644; J2270; J2405; J7030; J7120; J7500; Q9967